=== PATIENT | male | born 1950 | race Caucasian/White ===

== ENCOUNTER 2024-08-18 14:38 | Inpatient (IN) | payer MEDICARE, MEDICAID ==
[~2024-08-18] VITALS: Ht 172.7 cm; Wt 116.6 kg
[2024-08-18 15:36] VITALS: BP 129/84; PULSE 80; RESP 18; TEMP 36.6
[2024-08-18 16:00] VITALS: BP 129/84; PULSE 80; RESP 20; TEMP 36.6; O2SAT 96
[2024-08-18] MEDS ORDERED: ASPI-1406 PO (16:46)
[2024-08-18] MEDS ORDERED: TAMS-11 PO (16:58)
[2024-08-18] MEDS ORDERED: ROSU40TA PO (16:58)
[2024-08-18] MEDS ORDERED: AMLO10TA80 PO (16:58)
[2024-08-18] MEDS ORDERED: LISI20TA31 PO (16:58)
[2024-08-18] MEDS ORDERED: FISH12002 MT (16:58)
[2024-08-18] MEDS ORDERED: DEXTROSE 50% WATER 50ML SYRINGE IV PRN (17:00)
[2024-08-18] MEDS ORDERED: IPRATROPIUM/ALBUTEROL 0.5-3(2.5)MG/3ML NEB HHN PRN (17:00)
[2024-08-18] MEDS ORDERED: MAGNESIUM/ALUMINUM HYDROXIDE/SIMETHICONE 30ML UDC PO PRN (17:00)
[2024-08-18] MEDS ORDERED: GUAIFENESIN 200MG/10ML SUGAR FREE UDC PO PRN (17:00)
[2024-08-18 17:28] LABS: BASOPHILS % 0.5 % (0.0-2.0); EOSINOPHILS % 1.4 % (0.0-5.0); HEMATOCRIT. 47.8 % (42.0-52.0); HEMOGLOBIN. 16.1 g/dL (14.0-18.0); LYMPHOCYTES % 31.1 % (20.0-50.0); MEAN CORPUSCULAR HEMOGLOBIN 31.6 pg (28.0-32.0); MEAN CORPUSCULAR HGB CONC 33.7 g/dL (31.0-37.0); MEAN CORPUSCULAR VOLUME 93.8 fL (80.0-94.0); MONOCYTES % 9.4 % (2.0-8.0); NEUTROPHILS % 57.6 % (40.0-76.0); PLATELET 146 x1000/uL (130-400); RED CELL DISTRIBUTION WIDTH 13.5 % (11.6-14.6); WHITE BLOOD COUNT 6.5 x1000/uL (4.5-11.0)
[2024-08-18 17:34] LABS: CHLORIDE 107 mEq/L (98-107); POTASSIUM 3.9 mEq/L (3.5-5.1); SODIUM 143 mEq/L (136-145)
[2024-08-18 17:35] LABS: CALCIUM 8.9 mg/dL (8.7-10.4); CARBON DIOXIDE 29 mEq/L (21-32)
[2024-08-18 17:40] LABS: CREATININE 0.8 mg/dL (0.6-1.3); GLUCOSE 98 mg/dL (70-105); TRIGLYCERIDE 126 mg/dL (0-150); UREA NITROGEN BLOOD 10 mg/dL (9-23)
[2024-08-18 17:41] LABS: LDL CHOLESTEROL 149 mg/dL (5-100)
[2024-08-18 17:42] LABS: CHOLESTEROL 214 mg/dL (<200); HDL CHOLESTEROL 35 mg/dL (>55); PHOSPHORUS 2.4 mg/dL (2.5-4.9)
[2024-08-18 17:43] LABS: ALBUMIN 3.8 g/dL (3.2-4.8); PROTEIN TOTAL 6.9 g/dL (6.0-8.3)
[2024-08-18 17:58] LABS: HEPATITIS B SURFACE ANTIGEN NEGATIVE (Negative)
[2024-08-18 18:19] LABS: HEPATITIS C AB NON REACTIVE (Neg) (Negative)
[2024-08-18 19:00] LABS: INR 1.1; PARTIAL THROMBOPLASTIN TIME 28.8 sec (23.4-31.0); PROTHROMBIN TIME 11.4 sec (9.6-11.0)
[2024-08-18 19:15] LABS: CLARITY URINE CLEAR (CLEAR); COLOR URINE YELLOW (YELLOW); GLUCOSE URINE NEGATIVE (NEGATIVE); KETONES URINE 1+ (NEGATIVE); LEUKOCYTE ESTERASE URINE NEGATIVE (NEGATIVE); NITRITE URINE NEGATIVE (NEGATIVE); OCCULT BLOOD URINE NEGATIVE (NEGATIVE); PROTEIN URINE NEGATIVE (NEGATIVE); SPECIFIC GRAVITY URINE 1.013 (1.005-1.030)
[2024-08-18 19:18] LABS: ALANINE AMINOTRANSFERASE 22 IU/L (10-49); ALBUMIN 3.7 g/dL (3.2-4.8); ASPARTATE AMINOTRANSFERASE 19 IU/L (<34); BILIRUBIN DIRECT 0.2 mg/dL (<=3.0); BILIRUBIN TOTAL 0.9 mg/dL (0.1-1.0); PROTEIN TOTAL 6.6 g/dL (6.0-8.3)
[2024-08-18 19:32] LABS: *AMPHETAMINES SCREEN URINE NEGATIVE (NEGATIVE); *BARBITURATES SCREEN URINE NEGATIVE (NEGATIVE); *BENZODIAZEPINES SCREEN URINE NEGATIVE (NEGATIVE); *COCAINE SCREEN URINE NEGATIVE (NEGATIVE)
[2024-08-18 19:33] LABS: CANNABINOID URINE SCREEN NEGATIVE (NEGATIVE); ECSTASY MDMA SCREEN URINE NEGATIVE (NEGATIVE); METHADONE URINE SCREEN NEGATIVE (NEGATIVE); OPIATES URINE SCREEN NEGATIVE (NEGATIVE); PHENCYCLIDINE URINE SCREEN NEGATIVE (NEGATIVE)
[2024-08-18 19:55] LABS: BACTERIA URINE NONE SEEN; RBC URINE NONE SEEN /hpf (0-2); SQUAMOUS EPITHELIAL CELL URINE RARE /lpf (RARE/1+); WBC URINE 0-2 /hpf (0-2)
[2024-08-18 20:00] VITALS: BP 147/75; PULSE 68; RESP 20; TEMP 36.6; O2SAT 96
[2024-08-18 20:41] LABS: AMMONIA < 17 uMol/L (<32)
[2024-08-18] MEDS: ATORVASTATIN CALCIUM 40MG TABLET PO SCH (22:37)
[2024-08-18] MEDS: CLONIDINE 0.1MG TABLET PO PRN (22:58)
[2024-08-18] MEDS: POTASSIUM PHOSPHATE 15 MMOL in DEXT 5% WATER 250 ML IV NR (23:00)
[2024-08-18 23:16] LABS: TROPONIN I HIGH SENSITIVITY 16 ng/L (3.0-53)
[2024-08-19] VITALS: BP 132/72; PULSE 65; RESP 20; TEMP 36.3; O2SAT 100
[2024-08-19 04:00] VITALS: BP 113/61; PULSE 61; RESP 20; TEMP 36.3; O2SAT 97
[2024-08-19 08:00] VITALS: BP 158/99; PULSE 87; RESP 18; TEMP 36.6; O2SAT 96
[2024-08-19] MEDS: PANTOPRAZOLE SODIUM 40 MG/VIAL IV SCH (08:39)
[2024-08-19] MEDS: AMLODIPINE 10MG TABLET PO SCH (08:40)
[2024-08-19] MEDS: TAMSULOSIN HCL 0.4MG SR CAPSULE PO SCH (08:41)
[2024-08-19] MEDS: FUROSEMIDE 40MG/4ML VIAL IVP SCH (10:38)
[2024-08-19 11:15] LABS: T4 FREE 1.22 ng/dL (0.89-1.76)
[2024-08-19 11:23] LABS: CARBON DIOXIDE 27 mEq/L (21-32); CHLORIDE 104 mEq/L (98-107); POTASSIUM 3.5 mEq/L (3.5-5.1); SODIUM 142 mEq/L (136-145)
[2024-08-19 11:24] LABS: CALCIUM 9.1 mg/dL (8.7-10.4)
[2024-08-19 11:28] LABS: CREATININE 0.9 mg/dL (0.6-1.3); GLUCOSE 137 mg/dL (70-105)
[2024-08-19 11:29] LABS: UREA NITROGEN BLOOD 11 mg/dL (9-23)
[2024-08-19 11:31] LABS: PHOSPHORUS 2.4 mg/dL (2.5-4.9)
[2024-08-19 12:00] VITALS: BP 145/98; PULSE 88; RESP 18; TEMP 36.4; O2SAT 96
[2024-08-19] MEDS: ASPIRIN 81MG EC TABLET PO SCH (14:14)
[2024-08-19 20:00] VITALS: BP 128/88; PULSE 110; RESP 20; TEMP 36.6; O2SAT 94
[2024-08-19] MEDS: ENOXAPARIN 30MG/0.3ML SYR SUBCUT SCH (21:17)
[2024-08-20] VITALS: BP 122/81; PULSE 77; RESP 20; TEMP 36.6; O2SAT 97
[2024-08-20 04:00] VITALS: BP 116/66; PULSE 67; RESP 20; TEMP 36.4; O2SAT 97
[2024-08-20 08:00] VITALS: BP 115/72; PULSE 69; RESP 17; TEMP 36.7; O2SAT 100
[2024-08-20] MEDS: SPIRONOLACTONE 12.5MG TABLET PO SCH (08:51)
[2024-08-20 12:00] VITALS: BP 129/100; PULSE 99; RESP 17; TEMP 36.7; O2SAT 100
[2024-08-20 16:00] VITALS: BP 125/84; PULSE 100; RESP 20; TEMP 36.4; O2SAT 100
[2024-08-20 16:59] LABS: CARBON DIOXIDE 28 mEq/L (21-32); CHLORIDE 105 mEq/L (98-107); POTASSIUM 3.4 mEq/L (3.5-5.1); SODIUM 142 mEq/L (136-145)
[2024-08-20 17:00] LABS: CALCIUM 10.1 mg/dL (8.7-10.4)
[2024-08-20 17:05] LABS: CREATININE 0.9 mg/dL (0.6-1.3); GLUCOSE 136 mg/dL (70-105); UREA NITROGEN BLOOD 16 mg/dL (9-23)
[2024-08-20 20:00] VITALS: BP 113/82; PULSE 91; RESP 20; TEMP 36.4; O2SAT 98
[2024-08-21] VITALS (7 sets, daily range): BP systolic 114–160; BP diastolic 60–96; PULSE 60–97; RESP 16–22; TEMP 36.1–36.8; O2SAT 96–98
[2024-08-21] MEDS: POTASSIUM CHLORIDE 20MEQ TABLET SR PO NR (05:50)
[2024-08-21] MEDS: METOPROLOL TARTRATE 50MG TABLET PO SCH (15:27)
[2024-08-22] VITALS (7 sets, daily range): BP systolic 106–142; BP diastolic 56–88; PULSE 59–80; RESP 14–22; TEMP 36.1–36.5; O2SAT 94–100
[2024-08-22 08:19] LABS: CHLORIDE 104 mEq/L (98-107); POTASSIUM 3.3 mEq/L (3.5-5.1); SODIUM 144 mEq/L (136-145)
[2024-08-22 08:20] LABS: CARBON DIOXIDE 30 mEq/L (21-32)
[2024-08-22 08:25] LABS: CREATININE 0.9 mg/dL (0.6-1.3); GLUCOSE 98 mg/dL (70-105); UREA NITROGEN BLOOD 20 mg/dL (9-23)
[2024-08-22] MEDS: FUROSEMIDE 40MG TABLET PO SCH (09:00)
[2024-08-22] MEDS: METOPROLOL TARTRATE 25MG TABLET PO SCH (09:00)
[2024-08-22] MEDS: METOPROLOL TARTRATE 5MG/5ML VIAL IV PRN (09:13)
[2024-08-22] MEDS ORDERED: IOHEXOL-350 100 ML BOTTLE ONE (09:36)
[2024-08-22] MEDS: NITROGLYCERIN SPRAY/4.9GM CAN TL NR (10:00)
[2024-08-22] MEDS ORDERED: HEPARIN 1000 UNITS/ML 10ML ONE (13:55)
[2024-08-22] MEDS ORDERED: IODIXANOL 320MG/ML 100 ML BOTTLE IV ONE (13:55)
[2024-08-22] MEDS ORDERED: VERAPAMIL HCL 2.5 MG/1 ML 2ML VIAL IV ONE (13:55)
[2024-08-22] MEDS ORDERED: LIDOCAINE HCL 1% 20ML VIAL ONE (13:55)
[2024-08-22] MEDS ORDERED: MIDAZOLAM HCL 2 MG/2 ML VIAL ONE (14:31)
[2024-08-22] MEDS ORDERED: FENTANYL CITRATE/PF 50MCG/ML 2ML VIAL ONE (14:31)
[2024-08-22] MEDS ORDERED: DIPHENHYDRAMINE 50MG/ML VIAL ONE (14:31)
[2024-08-22] MEDS ORDERED: ATROPINE SULFATE 1MG/10ML SYR IV PRN (16:15)
[2024-08-22] MEDS ORDERED: ACETAMINOPHEN 325MG TABLET PO PRN (16:15)
[2024-08-22] MEDS: KCL 20MEQ/100ML PREMIX 100 ML IV SCH (18:24)
[2024-08-23] VITALS: BP 132/92; PULSE 68; RESP 13; TEMP 36.8; O2SAT 94
[2024-08-23 04:00] VITALS: BP 130/93; PULSE 84; RESP 14; TEMP 36.7; O2SAT 94
[2024-08-23 08:00] VITALS: BP 111/97; PULSE 76; RESP 18; TEMP 36.7; O2SAT 96
[2024-08-23 08:03] LABS: BASOPHILS % 0.2 % (0.0-2.0); EOSINOPHILS % 2.2 % (0.0-5.0); HEMATOCRIT. 49.8 % (42.0-52.0); HEMOGLOBIN. 16.6 g/dL (14.0-18.0); MEAN CORPUSCULAR HEMOGLOBIN 30.5 pg (28.0-32.0); MEAN CORPUSCULAR HGB CONC 33.2 g/dL (31.0-37.0); MEAN CORPUSCULAR VOLUME 91.8 fL (80.0-94.0); MEAN PLATELET VOLUME 8.7 fl (7.4-10.4); MONOCYTES % 9.8 % (2.0-8.0); NEUTROPHILS % 62.8 % (40.0-76.0); PLATELET 145 x1000/uL (130-400); RED BLOOD CELL COUNT 5.43 mill/uL (4.7-6.1); RED CELL DISTRIBUTION WIDTH 13.5 % (11.6-14.6); WHITE BLOOD COUNT 6.8 x1000/uL (4.5-11.0)
[2024-08-23 08:16] LABS: CHLORIDE 101 mEq/L (98-107); POTASSIUM 3.7 mEq/L (3.5-5.1); SODIUM 145 mEq/L (136-145)
[2024-08-23 08:17] LABS: CARBON DIOXIDE 32 mEq/L (21-32)
[2024-08-23 08:18] LABS: CALCIUM 9.7 mg/dL (8.7-10.4)
[2024-08-23 08:22] LABS: GLUCOSE 90 mg/dL (70-105); UREA NITROGEN BLOOD 20 mg/dL (9-23)
[2024-08-23 08:44] VITALS: PULSE 88
[2024-08-23] MEDS ORDERED: METO25TA6 PO (09:50)
[2024-08-23] MEDS ORDERED: LIP40 PO (09:50)
[2024-08-23] MEDS ORDERED: TAMS-11 PO (09:50)
[2024-08-23] MEDS ORDERED: AMLO10TA80 PO (09:50)
[2024-08-23] MEDS ORDERED: ASPI-1406 PO (09:50)
[2024-08-23] MEDS ORDERED: SPIR25TA PO (09:50)
[2024-08-23] MEDS ORDERED: FURO40TA5 PO (09:50)
[2024-08-23] MEDS ORDERED: CLOP-31 PO (09:55)
[2024-08-23 10:17] VITALS: BP 111/97; TEMP 98; O2SAT 98
== END 2024-08-23 12:51 | disposition home health service (06) | DRG 286 ==
LOC: 6EST 14:38 → 6WST 08-21 13:06 → 3WST 08-22 17:30
PROVIDERS: ADMIT Internal Medicine; ATTEND Internal Medicine
PROC: 4A023N7 Measurement of Cardiac Sampling and Pressure, Left Heart, Percutaneous Approach (ICD-10-PCS; principal; 2024-08-22)
PROC: B211YZZ Fluoroscopy of Multiple Coronary Arteries using Other Contrast (ICD-10-PCS; 2024-08-22)
DX: I11.0 Hypertensive heart disease with heart failure (principal); I50.41 Acute combined systolic (congestive) and diastolic (congestive) heart failure; I25.110 Atherosclerotic heart disease of native coronary artery with unstable angina pectoris; E83.39 Other disorders of phosphorus metabolism; I16.0 Hypertensive urgency; R16.0 Hepatomegaly, not elsewhere classified; K76.0 Fatty (change of) liver, not elsewhere classified; N28.1 Cyst of kidney, acquired; E66.9 Obesity, unspecified; E88.810 Metabolic syndrome; R35.0 Frequency of micturition; K59.00 Constipation, unspecified; E78.2 Mixed hyperlipidemia; K80.20 Calculus of gallbladder without cholecystitis without obstruction; N40.1 Benign prostatic hyperplasia with lower urinary tract symptoms; Z86.73 Personal history of transient ischemic attack (TIA), and cerebral infarction without residual deficits; Z79.82 Long term (current) use of aspirin; Z79.899 Other long term (current) drug therapy; Z87.891 Personal history of nicotine dependence; Z68.39 Body mass index [BMI] 39.0-39.9, adult
CPT/HCPCS: 36415; 75571; 76700; 76857; 80048; 80061; 80076; 80305; 81003; 82040; 82140; 83036; 83615; 83735; 83880; 84100; 84153; 84155; 84439; 84443; 84484; 85025; 86705; 87340; 93005; 93306; 93458; 93970; A4606; C1769; C1887; C1893; J1200; J1644; J1650; J1940; J2250; J2470; J3010; J3480; J3490; J7060; Q9967